=== PATIENT | female | born 1940 | race Caucasian/White ===

== ENCOUNTER → 2020-01-02 | Outpatient (REF) | payer MEDICARE ==
[~2020-01-02] MED LIST: ASPI-1 PO; FURO20TA2 PO; HYDR25TAB PO; LEVO50TA5 PO; LOVA20TA2 PO; NOVO1INJ18 SC; OZEM2INJ INJ; SPIR-10 PO
[2020-01-02 18:22] LABS: BACTERIA, URINE AUTO NEGATIVE (NEGATIVE); MUCUS, URINE SMALL (NEGATIVE); RBC, URINE AUTO 2 /HPF (0-3); SQUAMOUS EPITHELIAL CELL UR AU 1 /HPF (0-6); WBC, URINE AUTO 2 /HPF (0-3)
== END ==
LOC: M LAB REF 16:56
PROVIDERS: ATTEND Internal Medicine Nephrology
DX: N18.32 Chronic kidney disease, stage 3b (principal); R31.29 Other microscopic hematuria

== ENCOUNTER → 2020-07-06 | Outpatient (REF) | payer MEDICARE ==
[~2020-07-06] MED LIST changes: +HYDR-3490 PO; -HYDR25TAB PO
[2020-07-06 18:46] LABS: HEMOGLOBIN A1c 6.7 %
[2020-07-06 19:00] LABS: ALBUMIN 3.5 GM/DL (3.2-5.2); BILIRUBIN,DIRECT 0.1 MG/DL (0.0-0.2); BILIRUBIN,TOTAL 0.2 MG/DL (0.2-1.0); CALCIUM LEVEL 8.5 MG/DL (8.8-10.2); CHOLESTEROL RISK RATIO 2.696 (<5); CREATININE FOR GFR 2.24 MG/DL (0.55-1.30); FREE T4 0.96 NG/DL (0.76-1.46); GLOMERULAR FILTRATION RATE 22.4 (>39); POTASSIUM SERUM 4.4 MEQ/L (3.5-5.1); THYROID STIMULATING HORMONE 2.92 uIU/ML (0.358-3.740); TOTAL PROTEIN 7.3 GM/DL (6.4-8.2)
== END ==
LOC: M LAB REF 17:15
PROVIDERS: ATTEND Family Medicine
DX: E11.9 Type 2 diabetes mellitus without complications (principal); E03.9 Hypothyroidism, unspecified

== ENCOUNTER → 2020-11-11 | Outpatient (REF) | payer OTHER | LOC: M LAB REF 17:23 | PROVIDERS: ATTEND Internal Medicine Nephrology | DX: N18.32 Chronic kidney disease, stage 3b (principal) ==

== ENCOUNTER → 2021-02-10 | Outpatient (REF) | payer OTHER | LOC: M LAB REF 17:06 | PROVIDERS: ATTEND Internal Medicine Nephrology | DX: E83.42 Hypomagnesemia (principal) ==

== ENCOUNTER → 2022-02-17 | Outpatient (REF) | payer OTHER ==
[2022-02-17 20:23] LABS: WBC, URINE 40-50 /hpf (0-3)
[2022-02-17 20:24] LABS: BACTERIA, URINE LARGE AMOUNT; SQUAMOUS EPITHELIAL CELL URINE SMALL AMOUNT /hpf (SMALL AMT)
== END ==
LOC: M LAB REF 16:52
PROVIDERS: ATTEND Internal Medicine Nephrology
DX: R82.81 Pyuria (principal)

== ENCOUNTER → 2024-05-08 | Outpatient (REF) | payer OTHER ==
[2024-05-08 18:47] LABS: FERRITIN 30.7 NG/ML (7.3-270.7); FOLATE 14.7 NG/ML (>5.4)
[2024-05-08 18:48] LABS: PERCENT SATURATION 6.5 % (13.2-45.0)
== END ==
LOC: M LAB REF 17:03
PROVIDERS: ATTEND Internal Medicine Nephrology
DX: N18.9 Chronic kidney disease, unspecified (principal); D63.1 Anemia in chronic kidney disease

== ENCOUNTER 2024-05-29 13:05 | Outpatient (CLI) | payer OTHER, MEDICAID ==
[~2024-05-29] VITALS: Ht 149.9 cm; Wt 91.8 kg
[~2024-05-29 13:05] MED LIST changes: +ALBUTEROL SULFATE 2.5MG/0.5ML INH NEB SOLN INH PRN; +EPINEPHrine INJ 1 MG/ML 1ML AMP IM PRN; +NS (Normal Saline) 0.9% 1,000 ML IV SCH; +diphenhydrAMINE 50MG/ML VIAL IV PRN; +methylPREDNISolone 125MG 2ML VIAL IV PRN
[2024-05-29 13:35] VITALS: BP 146/65; O2SAT 97
[2024-05-29] MEDS: IRON SUCROSE 300 MG in NS 250 ML OVER 90 MIN. IV ONE (13:57)
[2024-05-29 16:55] VITALS: BP 131/60; O2SAT 96
== END 2024-05-29 16:55 ==
LOC: M INFU 13:05
PROVIDERS: ATTEND Internal Medicine Nephrology
DX: D50.9 Iron deficiency anemia, unspecified (principal)
CPT/HCPCS: 96365; 96366; J1756

== ENCOUNTER → 2024-06-05 | Outpatient (CLI) | payer OTHER ==
[~2024-06-05] VITALS: Ht 149.9 cm; Wt 91.0 kg
[~2024-06-05] MED LIST changes: -NS (Normal Saline) 0.9% 1,000 ML IV SCH
[2024-06-05] MEDS: IRON SUCROSE 300 MG in NS 250 ML OVER 90 MIN. IV ONE (15:29)
[2024-06-05 17:05] VITALS: BP 168/84; O2SAT 97
== END ==
LOC: M INFU 14:00
PROVIDERS: ATTEND Internal Medicine Nephrology
DX: D50.9 Iron deficiency anemia, unspecified (principal)
CPT/HCPCS: 96365; J1756

== ENCOUNTER 2024-06-13 14:00 | Outpatient (CLI) | payer OTHER ==
[~2024-06-13] VITALS: Ht 149.9 cm; Wt 88.2 kg
[~2024-06-13 14:00] MED LIST changes: +ALBUTEROL SULFATE 2.5MG/0.5ML INH CONCENTRATE NEB SOLN INH PRN; -ALBUTEROL SULFATE 2.5MG/0.5ML INH NEB SOLN INH PRN
[2024-06-13 14:07] VITALS: BP 152/87; O2SAT 99
[2024-06-13] MEDS: IRON SUCROSE 300 MG in NS 250 ML OVER 90 MIN. IV ONE (14:13)
[2024-06-13 15:47] VITALS: BP 150/82; O2SAT 99
== END 2024-06-13 15:55 ==
LOC: M INFU 14:00
PROVIDERS: ATTEND Internal Medicine Nephrology
DX: D50.9 Iron deficiency anemia, unspecified (principal)
CPT/HCPCS: 96365; J1756

== ENCOUNTER → 2024-11-20 | Outpatient (CLI) | payer OTHER ==
[~2024-11-20] MED LIST changes: -ALBUTEROL SULFATE 2.5MG/0.5ML INH CONCENTRATE NEB SOLN INH PRN; -EPINEPHrine INJ 1 MG/ML 1ML AMP IM PRN; -diphenhydrAMINE 50MG/ML VIAL IV PRN; -methylPREDNISolone 125MG 2ML VIAL IV PRN
== END ==
LOC: M PLAIMG 14:38
PROVIDERS: ATTEND Psychiatry & Neurology Neurology
DX: G30.1 Alzheimer's disease with late onset (principal); R40.4 Transient alteration of awareness; F02.80 Dementia in other diseases classified elsewhere, unspecified severity, without behavioral disturbance, psychotic disturbance, mood disturbance, and anxiety